=== PATIENT | female | born 1940 | race Two or more races ===

== ENCOUNTER 2018-01-13 10:00 | Outpatient (CLI) | payer OTHER ==
[~2018-01-13 10:00] MED LIST: NAPROXEN500 MG PO
== END 2018-01-13 11:00 | disposition home or self-care (01) ==
LOC: NUCLEAR 10:00
DX: E03.8 Other specified hypothyroidism (principal); M81.0 Age-related osteoporosis without current pathological fracture; E55.9 Vitamin D deficiency, unspecified; F41.8 Other specified anxiety disorders; G62.89 Other specified polyneuropathies; M54.5 Low back pain; E44.0 Moderate protein-calorie malnutrition